=== PATIENT | female | born 1970 | race Caucasian/White ===

== ENCOUNTER 2022-08-18 03:20 | Emergency (ER) | payer BC, SELFPAY ==
[2022-08-18 03:23] VITALS: BMI 22.8
[2022-08-18 03:28] VITALS: BP 102/33; PULSE 71; RESP 18; TEMP 36.1; O2SAT 99
--- NOTE | 2022-08-18 03:31 | CTR_ITS ---
PROCEDURE INFORMATION: Exam: CT Abdomen And Pelvis With Contrast Exam date and time: 08/18/2022 3:44 AM Age: 51 years old Clinical indication: Abdominal pain; Generalized; Prior surgery; Surgery date: 6+ months; Surgery type: Hysterectomy; Additional info: Abd pain TECHNIQUE: Imaging protocol: Computed tomography of the abdomen and pelvis with contrast. Radiation optimization: All CT scans at this facility use at least one of these dose optimization techniques: automated exposure control; mA and/or kV adjustment per patient size (includes targeted exams where dose is matched to clinical indication); or iterative reconstruction. Contrast material: OMNI 350; Contrast volume: 100 ml; Contrast route: INTRAVENOUS (IV); COMPARISON: No relevant prior studies available. RADIATION DOSE METRICS: Total DLP (mGy-cm): 389.98 FINDINGS: Lungs: The visualized portions of the lung bases are normal. Liver: Normal contrast enhancement of the liver. Segment VIII 7 x 7 mm low-attenuation lesion is seen, suggestive of a cyst. Gallbladder and bile ducts: No calcified stones. No ductal dilation. Pancreas: Normal contour and enhancement. No ductal dilation. Spleen: Normal enhancement. No splenomegaly. Adrenal glands: Normal contour. No mass. Kidneys and ureters: Left kidney lower pole simple 5 x 5 cm cyst is seen. Normal enhancement of the kidneys. Mild right hydronephrosis and ureterectasis. Suspected right distal ureteral 1 x 1 mm calculus (series 3, image 66 and series 5, image 20) at the level of the hip joint. This no left hydronephrosis, ureterectasis or ureteral calculi. Stomach and bowel: The non-contrast opacified stomach is not well distended with relative gastric fold prominence. Assessment is limited. Suspected tiny hiatal hernia. The noncontrast opacified small bowel loops appear unremarkable. The noncontrast opacified colonic loops appear unremarkable. The lack of orally administered contrast material limits assessment. Appendix: No appendix is specifically identified. Recommend correlation with procedural history. There is no evidence of fluid collections or inflammatory stranding in the right lower quadrant. Intraperitoneal space: No abdominal ascites. No free air. Some benign phleboliths seen in the pelvis. Vasculature: No abdominal aortic aneurysm. Inferior vena cava and portal vein appear unremarkable. Lymph nodes: No enlarged lymph nodes. Urinary bladder: The bladder is not well distended with relative wall prominence. Assessment is limited. Reproductive: Status post hysterectomy. Bones/joints: No acute osseous abnormality seen. Soft tissues: Unremarkable. CT/CT abdomen pelvis w con* [id number] IMPRESSION: Mild right hydronephrosis and ureterectasis. Suspected right distal ureteral 1 x 1 mm calculus (series 3, image 66 and series 5, image 20) at the level of the hip joint. COMMENTS: Consistent with the [place] [employer]'s Incidental Findings Committee white paper (J Am Erika Radiol 2018): Any incidental renal lesion less than 1 cm or classified as too small to characterize, or any incidental cystic renal lesion characterized as simple-appearing, is likely benign. No follow-up imaging is recommended for these lesions per consensus recommendations based on imaging criteria.
--- NOTE | 2022-08-18 03:34 | ED_ITS ---
HPI - Abdominal Pain General: Chief Complaint: Abdominal Pain Stated Complaint: Rt Side Pain Time Seen by Provider: 08/18/22 03:28 Source: patient Mode of arrival: ambulatory Limitations: no limitations History of Present Illness: 51-year-old female who states been having abdominal pain over the last 3 days states been intermittent in nature but tonight its been constant much worse. She states her pain is currently 9 out of 10 and she has had vomiting tonight. She has had kidney stones the past but states this does not really feel like her previous kidney stones. Denies any chest pain denies any fever denies any dysuria Associated Symptoms: Reports nausea and vomiting; Denies chills, dysuria and fever(s) Review of Systems Const: Denies: fever(s), chills, body aches or change in appetite Eyes: Denies: blurry vision or eye discomfort ENMT: Denies: throat pain or dental pain Card: Denies: chest pain Resp: Denies: dyspnea GI: Reports: abdominal pain, nausea and vomiting : Denies: dysuria Musc: Denies: neck pain or back pain Skin/Breast: Denies: rash Neuro: Denies: headache(s) Psych: Denies: depression Victor Manuel/Lymph: Denies: easy bruising All/Imm: Denies: urticaria PFSH ED 2 PFSH: Medical History (Updated 08/18/22 @ 05:17 by Wilbert Esteves MD) Kidney stone Surgical History (Updated 08/18/22 @ 03:34 by Wilbert Esteves MD) H/O: hysterectomy Social History (Updated 08/18/22 @ 03:34 by Wilbert Esteves MD) Substance/Drug Use: never Physical Exam Const: COMMON NORMALS: no acute distress, patient oriented x3 and healthy appearing HENMT: COMMON NORMALS: normocephalic and atraumatic HEAD & SCALP: normocephalic and atraumatic Eye: COMMON NORMALS: Equal, round and reactive pupils present and EOMs intact bilaterally PUPIL: Yes Equal, round and reactive pupils present Neck/C-Spine: COMMON NORMALS: full ROM and supple Chest: COMMONS NORMALS: normal inspection of the chest and normal palpation of entire chest wall Resp: COMMON NORMALS: normal respiratory effort, No retractions, No use of accessory muscles and clear to auscultation bilaterally AUSCULTATION: clear to auscultation bilaterally Cardio: COMMON NORMALS: regular rate, regular rhythm and No murmurs present (Cardio) RATE: regular rate RHYTHM: regular rhythm GI: COMMON NORMALS: Normal to inspection, nondistended, normoactive bowel sounds present, Soft to palpation and no masses PALPATION: Yes Soft to palpation OTHER: right sided abd tenderness Extremity: COMMON NORMALS: normal to inspection and full ROM Neuro: COMMON NORMALS: patient oriented x3, moves all extremities and no focal motor deficits Psych: COMMON NORMALS: mental status grossly normal, Normal thought process present and cooperative THOUGHT PROCESS: Normal thought process present Skin: COMMON NORMALS: no rashes or lesions noted and no wounds GENERAL SKIN EXAM: no rashes or lesions noted Course Vital Signs: Vital signs: Vital Signs Temperature 96.9 F L 08/18/22 03:28 Pulse Rate 80 08/18/22 04:57 Respiratory Rate 14 08/18/22 04:57 Blood Pressure 111/74 08/18/22 04:57 Pulse Oximetry 99 08/18/22 04:57 Oxygen Delivery Me thod 08/18/22 04:57 Oxygen Flow Rate 2 08/18/22 03:57 MDM - Abdominal Pain Medical Decision Making Patient presents here with right abdominal and flank pain considered with a kidney stone kidney stone seen on CT scan her pain is much improved she is stable for discharge she is to follow-up with Dr. Mccann and return if worsening. Lab Data : 08/18/22 03:40 08/18/22 03:40 Labs/Radiology: Radiology Impressions Abdomen/Pelvis CT 08/18/22 03:31 IMPRESSION: Mild right hydronephrosis and ureterectasis. Suspected right distal ureteral 1 x 1 mm calculus (series 3, image 66 and series 5, image 20) at the level of the hip joint. COMMENTS: Consistent with the [employer] [place] [employer]'s Incidental Findings Committee white paper (J Am Erika Radiol 2018): Any incidental renal lesion less than 1 cm or classified as too small to characterize, or any incidental cystic renal lesion characterized as simple-appearing, is likely benign. No follow-up imaging is recommended for these lesions per consensus recommendations based on imaging criteria. Laboratory Results WBC 7.1 10^3/uL (4.0-10.0) 08/18/22 03:40 RBC 4.81 10^6/uL (4.1-5.3) 08/18/22 03:40 Hgb 14.9 g/dL (11.5-15.3) 08/18/22 03:40 Hct 44.0 % (37.0-47.0) 08/18/22 03:40 MCV 91.5 fl (81-99) 08/18/22 03:40 MCH 31.0 pg (28.0-34.0) 08/18/22 03:40 MCHC 33.9 g/dL (30.0-36.0) 08/18/22 03:40 RDW 12.0 % (12.1-15.1) L 08/18/22 03:40 Plt Count 198 10^3/cmm (130-400) 08/18/22 03:40 MPV 10.4 fL (7.4-10.4) 08/18/22 03:40 Neut % (Auto) 54.0 % 08/18/22 03:40 Lymph % (Auto) 33.7 % 08/18/22 03:40 [place] % (Auto) 8.7 % 08/18/22 03:40 Eos % (Auto) 3.1 % 08/18/22 03:40 Baso % (Auto) 0.4 % 08/18/22 03:40 Neut # (Auto) 3.82 10^3/uL (1.8-7.7) 08/18/22 03:40 Lymph # (Auto) 2.4 10^3/uL (0.8-4.8) 08/18/22 03:40 [place] # (Auto) 0.6 10^3/uL (0.2-0.9) 08/18/22 03:40 Eos # (Auto) 0.2 10^3/uL (0.0-0.8) 08/18/22 03:40 Baso # (Auto) 0.0 10^3/uL (0.0-0.1) 08/18/22 03:40 Nucleated RBC % (auto) 0 % 08/18/22 03:40 Nucleated RBCs # 0.0 /100WBC 08/18/22 03:40 Sodium 139 mmol/L (136-145) 08/18/22 03:40 Potassium 4.2 mmol/L (3.5-5.1) 08/18/22 03:40 Chloride 103 mmol/L (98-107) 08/18/22 03:40 Carbon Dioxide 24 mmol/L (22-29) 08/18/22 03:40 Anion Gap 16.2 (5-19) 08/18/22 03:40 BUN 9 mg/dL (6-20) 08/18/22 03:40 Creatinine 0.9 mg/dL (0.5-0.9) 08/18/22 03:40 GFR Calculation 66.5 mL/min (90-130) L 08/18/22 03:40 Glucose 104 mg/dL (65-115) 08/18/22 03:40 Calculated Osmolality 287 mOsm/kg (285-295) 08/18/22 03:40 Lactate 1.4 mmol/L (0.5-2.2) 08/18/22 03:38 Calcium 9.8 mg/dL (8.5-10.5) 08/18/22 03:40 Total Bilirubin 0.3 mg/dL (0.15-1.2) 08/18/22 03:40 AST 12 U/L (0-32) 08/18/22 03:40 ALT 7 U/L (0-33) 08/18/22 03:40 Alkaline Phosphatase 75 U/L (35-105) 08/18/22 03:40 Total Protein 6.6 g/dL (6.6-8.7) 08/18/22 03:40 Albumin 3.9 g/dL (3.5-5.2) 08/18/22 03:40 Globulin 2.7 g/dL (1.3-4.6) 08/18/22 03:40 Lipase 11 U/L (13-60) L 08/18/22 03:40 Urine Color Yellow (Yellow) 08/18/22 04:55 Urine Appearance Clear (CLEAR) 08/18/22 04:55 Urine pH 6.5 (5-7) 08/18/22 04:55 Ur Specific [place] 1.015 (1.005-1.030) 08/18/22 04:55 Urine Protein 1+ (Negative) H 08/18/22 04:55 Urine Glucose (UA) Norm (Normal) 08/18/22 04:55 Urine Ketones 1+ (Negative) H 08/18/22 04:55 Urine Blood 3+ (Negative) H 08/18/22 04:55 Urine Nitrate Negative (Negative) 08/18/22 04:55 Urine Bilirubin 1+ (Negative) H 08/18/22 04:55 Urine Urobilinogen 1 mg/dL (Negative) H 08/18/22 04:55 Ur Leukocyte Esterase Negative (Negative) 08/18/22 04:55 Urine RBC Too numerous to cnt /hpf (0-2) H 08/18/22 04:55 Urine WBC 0-4 /hpf (0-5) H 08/18/22 04:55 Ur Squamous Epith Cells 0-4 /hpf (0-5) H 08/18/22 04:55 Amorphous Sediment Not Reportable 08/18/22 04:55 Urine Bacteria Trace /hpf (NONE) 08/18/22 04:55 Hyaline Casts 0-4 /lpf H 08/18/22 04:55 Urine Mucus 2+ /hpf 08/18/22 04:55 Discharge Plan Discharge Patient Disposition: Home Clinical Impression: Kidney stone Prescriptions: New hydrocodone-acetaminophen 5-325 mg tablet 1 tab PO Q6H PRN (Reason: pain) Qty: 14 0RF ondansetron 4 mg tablet,disintegrating 4 mg PO Q6H PRN (Reason: nausea and vomiting) Qty: 14 0RF Discharge Orders: Discharge ED (Routine); Ordered 08/18/22 Ordered By: Wilbert Esteves Referrals: [facility], [Occupational Therapist] - Valdemar Mccann MD [Physician] - 1-3 days Discharge Diet: Advance as tolerated Discharge Activity: Resume usual activity Patient Instructions: Kidney Stones (ED), Opioid Safety Coding Level of Care Code ED Beef Killer for Chg Fwd Exam Comprehensive
[2022-08-18] MEDS: ondansetron 2 mg/ML SDV 2 mL 4 MG IVP (03:42)
[2022-08-18] MEDS: HYDROmorphone 1 mg/mL INJ 1 mL 0.5 MG IVP (03:42)
[2022-08-18] MEDS: sodium chloride 0.9% 1,000 ML 999 ML IV (03:42)
[2022-08-18 03:47] LABS: Basophils % 0.4 %; Eosinophils # 0.2 10^3/uL (0.0-0.8); Eosinophils % 3.1 %; Hemoglobin 14.9 g/dL (11.5-15.3); Lymphocytes # 2.4 10^3/uL (0.8-4.8); Lymphocytes % 33.7 %; Mean Corpuscular HGB Conc 33.9 g/dL (30.0-36.0); Mean Corpuscular Volume 91.5 fl (81-99); Mean Platelet Volume 10.4 fL (7.4-10.4); Monocytes # 0.6 10^3/uL (0.2-0.9); Monocytes % 8.7 %; Neutrophils # 3.82 10^3/uL (1.8-7.7); Nucleated Red Blood Cells % 0 %; Platelet Count 198 10^3/cmm (130-400); Red Blood Count 4.81 10^6/uL (4.1-5.3); White Blood Count 7.1 10^3/uL (4.0-10.0)
[2022-08-18 03:57] VITALS: BP 123/73; O2SAT 97
[2022-08-18 04:02] LABS: Chloride 103 mmol/L (98-107); Potassium 4.2 mmol/L (3.5-5.1); Sodium 139 mmol/L (136-145)
[2022-08-18 04:08] VITALS: RESP 22
[2022-08-18] MEDS: HYDROmorphone 1 mg/mL INJ 1 mL IVP (04:08)
[2022-08-18 04:18] LABS: Lactate (Lactic Acid level) 1.4 mmol/L (0.5-2.2)
[2022-08-18 04:27] LABS: Alanine Aminotransferase 7 U/L (0-33); Albumin Level 3.9 g/dL (3.5-5.2); Alkaline Phosphatase 75 U/L (35-105); Anion Gap 16.2 (5-19); Aspartate Amino Transferase 12 U/L (0-32); Blood Urea Nitrogen 9 mg/dL (6-20); Calcium 9.8 mg/dL (8.5-10.5); Carbon Dioxide 24 mmol/L (22-29); Globulin 2.7 g/dL (1.3-4.6); Glomerular Filtration Rate 66.5 mL/min (90-130); Glucose 104 mg/dL (65-115); Lipase 11 U/L (13-60); Osmolality Calculated 287 mOsm/kg (285-295); Total Bilirubin 0.3 mg/dL (0.15-1.2); Total Protein 6.6 g/dL (6.6-8.7)
[2022-08-18 04:57] VITALS: BP 111/74; PULSE 80; RESP 14; O2SAT 99
[2022-08-18 05:10] LABS: Bilirubin Urine 1+ (Negative); Blood Urine 3+ (Negative); Glucose Urine UA Norm (Normal); Ketones Urine 1+ (Negative); Leukocyte Esterase Urine Negative (Negative); Nitrate Urine Negative (Negative); Protein Urine 1+ (Negative); Specific Gravity, Urine 1.015 (1.005-1.030); Urine Appearance Clear (CLEAR); Urine Color Yellow (Yellow); Urobilinogen Urine 1 mg/dL (Negative); pH Urine 6.5 (5-7)
[2022-08-18 05:11] LABS: Add Urine Microscopic? YES
[2022-08-18 05:13] LABS: Add Urine Culture? No; Bacteria Urine TRACE /hpf; Hyaline Casts Urine 0-4 /lpf; Mucus Urine 2+ /hpf; RBC Urine TOO NUMEROUS TO CNT /hpf (0-2); Squamous Epithelial Cell Urine 0-4 /hpf (0-5); WBC Urine 0-4 /hpf (0-5)
[2022-08-18] MEDS: ketorolac 30 mg/mL INJ 15 MG IVP (05:23)
[2022-08-18 05:24] VITALS: BP 123/86; PULSE 61; RESP 17; O2SAT 99
--- NOTE | 2022-08-18 10:09 | DCPLANNER ---
Addendum entered by Rhianna Newsome 08/22/22 08:33: manager culinary received the following message from the urology clinic regarding follow up appointment: Tried to schedule appt. for patient and stated she passed stone and does not want an appt. Original Note: manager culinary had message to schedule a follow up appointment for patient with urology. manager culinary sent patients information to the front office staff at urology. Patients information will be printed and reviewed. Clinic will call patient with appointment information.
== END 2022-08-18 05:34 | disposition home or self-care (01) ==
PROVIDERS: Emergency Provider Emergency Medicine
DX: N20.0 Calculus of kidney (principal); Z87.442 Personal history of urinary calculi
CPT/HCPCS: 74177; 80053; 81001; 83605; 83690; 85025; 96361; 96374; 96375; 96376; 99285; J1170; J1885; J2405; J7030; Q9967

== ENCOUNTER 2025-07-14 06:22 | Emergency (ER) | payer BC, SELFPAY ==
[2025-07-14 06:23] VITALS: BP 113/86; PULSE 68; O2SAT 99; BMI 23.3
--- OUTSIDE RECORDS SUMMARY | 2025-07-14 06:27 | XMS_ITS | Clinical Summary ---
Author Organization [facility] lug[facility]ain Address [address] [place] [address] Phone Care Team Providers Care Leather Softener Name Role Phone Faustino Bose Primary Care Provider [phone] Allergies Active Allergy Reactions Criticality Noted Date Comments Erythromycin Rash Low 10/14/2021 Hydrocodone Palpitations Low 10/14/2021 Nut Flavor Rash Low 08/22/2024 almonds Phenytoin Sodium Extended Rash Low 10/14/2021 Medications naproxen sodium (ALEVE) 220 mg Tablet Take 220 mg by mouth. 07/01/20 25 Discontinued Active Problems Problem Noted Date Diagnosed Date Chronic constipation 10/14/2021 History of seizures 10/14/2021 Overview (10/14/2021): Mid 20's, no medication currently Polyp of colon 03/07/2020 Overview (01/28/2025): Per colonoscopy 02/28/2020 Family history of colonic polyps 12/25/2019 Multiple benign melanocytic nevi 12/25/2019 Perforation of tympanic membrane 12/25/2019 Irritable bowel syndrome with constipation 12/25 Overview (01/28/2025): Dx by nutrition consultant. Pruritic disorder 12/04/2019 Overview (01/28/2025): at least 8 year, mostly lower legs now advancing to other places on the body. Bilateral plantar fasciitis 12/04/2019 Encounters Date Type Department Care Team Description 07/01/2025 3:50 PM CDT Office Visit [facility] [address] [place] [address] Marya Lopez, RADIO SURVEY WORKER Irritable bowel syndrome with constipation (Primary Dx); Encounter for screening mammogram for malignant neoplasm of breast 06/03/2025 External Device Data STL ABSTRACTION Provider, Abstract 05/14/2025 External Device Data STL ABSTRACTION Provider, Abstract 05/13/2025 External Device Data STL ABSTRACTION Provider, Abstract 04/15/2025 External Device Data STL ABSTRACTION Provider, Abstract from Last 3 Months Family History Medical History Relation Name Comments Hypertension Brother 1 Diabetes Father Diabetes Maternal Grandmother Heart Disease Maternal Grandmother Hypertension Mother Diabetes Paternal Grandmother Colon Cancer Neg Hx Relation Name Status Comments Brother 1 Alive Brother 2 Alive Brother 3 Alive Brother 4 Alive Brother 5 Alive Daughter Alive Father Alive Maternal Grandmother Mother Alive Paternal Grandmother Sister 1 Alive Sister 2 Alive Son Alive Social History Tobacco Use Types Packs/Day Years Used Date Smoking Tobacco: Every Day Cigarettes 0.5 32 Passive Smoke Exposure: Current Smokeless Tobacco: Never Tobacco Cessation:Ready to Q uit: Not Asked; Counseling Given: Not Answered Alcohol Use Standard Drinks/Week Comments Never 0 (1 standard drink = 0.6 oz pur e alcohol) Feeling Safe Answer Date Recorded Are you in a relationship wi th someone who hurts you emotionally and/or physically? No 11/05/2024 Comments No Sex and Gender Information Value Date Recorded Sex Assigned at Not on file Legal Sex Female 10:46 AM CDT Gender Identity Not on file Sexual Orientation Not on file Last Filed Vital Signs Vital Sign Reading Time Taken Comments Blood Pressure 100/62 07/01/2025 3:55 PM CDT Pulse 65 07/01/2025 3:55 PM CDT Temperature 36.5 C (97.7 F) 07/01/2025 3:55 PM CDT Respiratory Rate 18 07/01/2025 3:55 PM CDT Oxygen Saturation 99% 07/01/2025 3:55 PM CDT Inhaled Oxygen Concentration - - Weight 61.6 kg (135 lb 12.8 oz) 07/01/2025 3:55 PM CDT Height 160 cm (5' 3 ) 07/01/2025 3:55 PM CDT Body Mass Index 24.06 07/01/2025 3:55 PM CDT Plan of Treatment Upcoming Encounters Date Type Department Care Team (Late st Contact Info) Description 07/30/2025 12:45 PM CDT Appointment [facility] [place] [address] [place] [id number] Marya Lopez, RADIO SURVEY WORKER [address] [place] [address] Health Maintenance Due Date Last Done Comments DTAP/TDAP/TD VACCINES (1 - Tdap) 1991 HEPATITIS B VACCINES (1 of 3 - 19+ 3-dose series) 1991 BREAST CANCER SCREENING 2012 FIT-DNA Q 3 years 2017 FIT/FOBT Q 1 year 2017 Flex Sig/CT Colonography Q 5 years 2017 ZOSTER VACCINE (1 of 2) 2022 Preventative Visit- Commercial 10/30/2024 INFLUENZA VACCINE (#1) 2025 COLORECTAL SCREENING 11/05/2034 11/05/2024, 11/05/2024, 11/04/2024, Additional history exists Colorectal Cancer Screening 11/05/2034 Procedures Procedure Name Priority Date/Time Associated Diagnosis Comments COLONOSCOPY REPORT 11/05/2024 10 :39 AM STOREROOM CLERK from Last 3 Months or Most Recently Relevant to Health Maintenance Results * COLONOSCOPY REPORT (11/05/2024 10:39 AM STOREROOM CLERK) Narrative Procedure Note Jeremy Jacques MD - 11/05/2024 10:[address] [facility] GI Patient Name: Nahed Carlos Procedure Date: 11/05/2024 Date of : 1970 Admit Type: Outpatient Age: 54 Attending MD: Jeremy Jacques MD, Procedure: Colonoscopy Indications: Screening for colorectal malignant neoplasm Providers: Jeremy Jacques MD Referring MD: Medicines: Monitored Anesthesia Care Complications: No immediate complications. Procedure: Pre-Anesthesia Assessment: - Prior to the procedure, a History and Physical was performed, and patient medications and allergies were reviewed. The patient's tolerance of previous anesthesia was also reviewed. The risks and benefits of the procedure and the sedation options and risks were discussed with the patient. All questions were answered, and informed consent was obtained. Prior Anticoagulants: The patient has taken no anticoagulant or antiplatelet agents. ASA Grade Assessment: II - A patient with mild systemic disease. After reviewing the risks and benefits, the patient was deemed in satisfactory condition to undergo the procedure. After I obtained informed consent, the scope was passed under direct vision. Throughout the procedure, the patient's blood pressure, pulse, and oxygen saturations were monitored continuously. The Colonoscope was introduced through the anus and advanced to the cecum, identified by appendiceal orifice and ileocecal valve. The colonoscopy was performed without difficulty. The patient tolerated the procedure well. The quality of the bowel preparation was adequate. Estimated Blood Loss: Estimated blood loss was minimal. Findings: Internal hemorrhoids were found during retroflexion. The hemorrhoids were small. The exam was otherwise without abnormality. Impression: - Internal hemorrhoids. - The examination was otherwise normal. - No specimens collected. Recommendation: - Patient has a contact number available for emergencies. The signs and symptoms of potential delayed complications were discussed with the patient. Return to normal activities tomorrow. Written discharge instructions were provided to the patient. - Resume previous diet. - Continue present medications. - Repeat colonoscopy in 10 years for screening purposes. Jeremy Jacques MD 11/05/2024 10:39:10 AM Number of Addenda: 0 Note Initiated On: 11/05/2024 10:06 AM Scope Withdrawal Time 0 hours 12 minutes 47 seconds Scope In: 10:16:31 AM Scope Out: 10:36:50 AM [address] [place], [place] Jeremy Jacques MD GI PROCEDURE ORDERA BLES Final Result from Last 3 Months or Most Recently Relevant to Health Maintenance Insurance [facility] ACCESS Advance Directives For more information, please contact: [phone] * Full Code (Latest Code Status on File) Date Activated Date Inactivated Comments 11/04/2024 12:59 PM 11/04/2024 4:17 PM Care Teams Leather Softener Relationship Specialty Start Date End Date Faustino Bose DO [address] [place] [address] PCP - General Family Practice 10/14/21
--- NOTE | 2025-07-14 06:34 | XRR_ITS ---
PROCEDURE INFORMATION: Exam: XR Abdomen Exam date and time: 07/14/2025 07:05 AM Age: 54 years old Clinical indication: Constipation; Additional info: Abd pain constipation TECHNIQUE: Imaging protocol: Radiologic exam of the abdomen. Views: 2 Views. Upright and supine views. COMPARISON: CT abdomen pelvis w con* [id number] 08/18/2022 03:44 AM FINDINGS: Lungs: Single view of the chest demonstrates no airspace disease. Pleural spaces: No pleural effusion. Heart/Mediastinum: Cardiac size and configuration are within normal limits. Gastrointestinal tract: The bowel-gas pattern is nonobstructive with a moderate amount of stool throughout the colon. No free air or suspicious air-fluid levels. Intraperitoneal space: See Gastrointestinal tract finding. Organs: No organomegaly or abnormal abdominal calcifications. Bones/joints: Unremarkable for age. XR/XR acute abdomen series [id number] IMPRESSION: 1. No airspace disease. 2. Nonobstructive bowel-gas pattern with moderate stool throughout the colon.
--- NOTE | 2025-07-14 06:47 | ED_ITS ---
HPI - General Adult 2 General: Chief complaint: Abdominal Pain Stated complaint: constipation for about 2weeks Time Seen by Provider: 07/14/25 06:33 History of Present Illness: 54-year-old female presents to the [facility] ency room with complaints of constipation. Patient states this been a longstanding problems been going on for several months. She has had colonoscopy x 2 earlier this year with no significant pathologic findings. He did have a hard time getting her prep completed on the initial 1 to get adequate colonoscopy. She denies any bright red blood per rectum. States she has not had a bowel movement for nearly 2 weeks. She is on MiraLAX regularly and she has tried [id number] laxatives. Associated symptoms: Reports nausea and vomiting; Deny chest pain, dyspnea or rash Related Data Previous Rx's ?Medication ?Instructions ?Recorded hydrocodone 5 mg-acetaminophen 325 1 tab PO Q6H PRN pa in #14 tabs 08/18/22 mg tablet ondansetron 4 mg disintegrating 4 mg PO Q6H PRN nausea and 08/18/22 tablet vomiting #14 tabs lactulose 10 gram/15 mL oral 30 ml PO Q2H PRN constipa tion 72 07/14/25 solution (Generlac) hours #1,080 mL Allergies Allergy/AdvReac Type Severity Reaction Status Date / Time erythromycin base (From Allergy Unknown Verified 08/18/22 04:09 Erythrocin) Review of Systems 2 Const: Denies: fever(s) or chills Card: Denies: chest pain Resp: Denies: dyspnea GI: Reports: abdominal pain, nausea, vomiting, constipation and bloating; Denies: hematemesis, coffee ground emesis, hematochezia or melena : Denies: dysuria, urinary frequency or urinary urgency Musc: Denies: neck pain or back pain Skin/Breast: Denies: rash PFSH ED 2 PFSH: Medical History Kidney stone Surgical History H/O: hysterectomy Social History Substance/Drug Use: never Physical Exam 2 Const: COMMON NORMALS: no acute distress GENERAL APPEARANCE: cooperative and comfortable ORIENTATION/CONSCIOUSNESS: Yes awake, Yes oriented to person, Yes oriented to place and Yes oriented to time HENMT: COMMON NORMALS: normocephalic, atraumatic and hearing grossly normal bilaterally HEAD & SCALP: normocephalic and atraumatic Resp: COMMON NORMALS: normal respiratory effort, No retractions, No use of accessory muscles and clear to auscultation bilaterally AUSCULTATION: clear to auscultation bilaterally Cardio: COMMON NORMALS: regular rate, regular rhythm and No murmurs present (Cardio) RATE: regular rate RHYTHM: regular rhythm GI: COMMON NORMALS: Soft to palpation and No hepatosplenomegaly present A USCULTATION: Yes normoactive bowel sounds PALPATION: Yes Soft to palpation, No Tenderness to palpation present (GI), No Guarding due to palpation present (GI) and Yes No hepatosplenomegaly present Extremity: COMMON NORMALS: normal to inspection, capillary refill normal, no clubbing, cyanosis or edema, no calf tenderness and no pedal edema Neuro: SENSORIUM/ORIENTATION: Yes oriented to person, Yes oriented to place and Yes oriented to time Skin: COMMON NORMALS: no rashes or lesions noted GENERAL SKIN EXAM: no rashes or lesions noted Course 2 Vital Signs: Vital signs: Vital Signs Pulse Rate 68 07/14/25 06:23 Blood Pressure 105/72 07/14/25 07:03 Pulse Oximetry 99 07/14/25 07:03 Oxygen Delivery Me thod Room Air 07/14/25 07:03 MDM - General Adult Medical Decision Making Moderate stool but no signs of bowel obstruction on either exam or on the acute abdominal series. Patient is already taking MiraLAX encouraged her to spread it out throughout the day can increase the dose for effectiveness. Patient given enema in the emergency room and will discharge home with lactulose. She has previously had colonoscopy within the last year. Her laboratory work is unremarkable and her exam shows no sign of acute abdomen. Encouraged her to follow-up with primary care doctor and gastroenterology. Medical Records I reviewed the patient's medical records. Lab Data I reviewed the patient's lab results. 07/14/25 07:34 07/14/25 07:34 Radiology Impressions Chest/Abdomen X-ray 07/14/25 06:34 IMPRESSION: 1. No airspace disease. 2. Nonobstructive bowel-gas pattern with moderate stool throughout the colon. Laboratory Results WBC 5.63 10^3/uL (3.29-11.43) 07/14/25 07:34 RBC 4.75 10^6/uL (3.85-5.65) 07/14/25 07:34 Hgb 14.20 g/dL (11.27-16.99) 07/14/25 07:34 Hct 43.4 % (36-47) 07/14/25 07:34 MCV 91.4 fl (85-98) 07/14/25 07:34 MCH 29.9 pg (27-33) 07/14/25 07:34 MCHC 32.7 g/dL (30-55) 07/14/25 07:34 RDW 12.6 % (12.1-15.1) 07/14/25 07:34 Plt Count 148 10^3/cmm (157-399) L 07/14/25 07:34 MPV 10.5 fL (7.4-10.4) H 07/14/25 07:34 Neut % (Auto) 49.6 % 07/14/25 07:34 Lymph % (Auto) 36.4 % 07/14/25 07:34 [place] % (Auto) 8.9 % 07/14/25 07:34 Eos % (Auto) 4.4 % 07/14/25 07:34 Baso % (Auto) 0.7 % 07/14/25 07:34 Neut # (Auto) 2.79 10^3/uL (1.8-7.7) 07/14/25 07:34 Lymph # (Auto) 2.1 10^3/uL (0.8-4.8) 07/14/25 07:34 [place] # (Auto) 0.5 10^3/uL (0.2-0.9) 07/14/25 07:34 Eos # (Auto) 0.3 10^3/uL (0.0-0.8) 07/14/25 07:34 Baso # (Auto) 0.0 10^3/uL (0.0-0.1) 07/14/25 07:34 Nucleated RBC % (auto) 0 % 07/14/25 07:34 Nucleated RBCs # 0.0 /100WBC 07/14/25 07:34 Sodium 144 mmol/L (136-145) 07/14/25 07:34 Potassium 4.0 mmol/L (3.5-5.1) 07/14/25 07:34 Chloride 108 mmol/L (98-107) H 07/14/25 07:34 Carbon Dioxide 25 mmol/L (22-29) 07/14/25 07:34 Anion Gap 15.0 (5-19) 07/14/25 07:34 BUN 11 mg/dL (6-20) 07/14/25 07:34 Creatinine 0.8 mg/dL (0.5-0.9) 07/14/25 07:34 GFR Calculation 75.3 mL/min (90-130) L 07/14/25 07:34 Glucose 80 mg/dL (65-115) 07/14/25 07:34 Calculated Osmolality 296 mOsm/kg (285-295) H 07/14/25 07:34 Calcium 9.9 mg/dL (8.5-10.5) 07/14/25 07:34 Total Bilirubin 0.4 mg/dL (0.15-1.2) 07/14/25 07:34 AST 14 U/L (0-32) 07/14/25 07:34 ALT 8 U/L (0-33) 07/14/25 07:34 Alkaline Phosphatase 77 U/L (35-105) 07/14/25 07:34 Total Protein 7.1 g/dL (6.6-8.7) 07/14/25 07:34 Albumin 4.3 g/dL (3.5-5.2) 07/14/25 07:34 Globulin 2.8 g/dL (1.3-4.6) 07/14/25 07:34 Urine Color Yellow (Yellow) 07/14/25 07:00 Urine Appearance Clear (CLEAR) 07/14/25 07:00 Urine pH 5.5 (5-7) 07/14/25 07:00 Ur Specific [place] 1.010 (1.005-1.030) 07/14/25 07:00 Urine Protein Negative (Negative) 07/14/25 07:00 Urine Glucose (UA) Negative (Normal) 07/14/25 07:00 Urine Ketones Negative (Negative) 07/14/25 07:00 Urine Blood Trace (Negative) A 07/14/25 07:00 Urine Nitrate Negative (Negative) 07/14/25 07:00 Urine Bilirubin Negative (Negative) 07/14/25 07:00 Urine Urobilinogen 0.2 mg/dL (Negative) 07/14/25 07:00 Ur Leukocyte Esterase Trace (Negative) A 07/14/25 07:00 Urine RBC 0-2 /hpf (0-2) 07/14/25 07:00 Urine WBC 0-5 /hpf (0-5) 07/14/25 07:00 Ur Squamous Epith Cells 0-5 /hpf (0-5) 07/14/25 07:00 Amorphous Sediment Not Reportable 07/14/25 07:00 Urine Bacteria None seen /hpf (NONE) 07/14/25 07:00 Hyaline Casts 1.21 /lpf 07/14/25 07:00 All radiology interpretation(s) finalized by discharge Discharge Plan Discharge Patient Disposition: Home Clinical Impression: Constipation Condition: Stable Prescriptions: New lactulose [Generlac] 10 gram/15 mL solution 30 ml PO Q2H PRN (Reason: constipation) 3 Days Qty: 1080 0RF Rx Instructions: until desired laxative effect No Action hydrocodone-acetaminophen 5-325 mg tablet 1 tab PO Q6H PRN (Reason: pain) Qty: 14 0RF ondansetron 4 mg tablet,disintegrating 4 mg PO Q6H PRN (Reason: nausea and vomiting) Qty: 14 0RF Discharge Orders: Discharge ED (Routine); Ordered 07/14/25 Ordered By: Ervin Simmons Discharge Diet: Clear Liquid Discharge Activity: Increase activity as tolerated Patient Instructions: Constipation (ED), Opioid Safety, Pain Management, Patient Portal & Jeanette Instructions Activity Restrictions/Additional Instructions: Thank you for choosing [facility] for your healthcare needs today. It is very important that you follow up as instructed or that you return to the Emergency Department should you have concerns or if your condition changes or worsens in any way. Emergency department visits are focused on emergent conditions, in some cases you may require further evaluation on an outpatient basis. You were seen in the emergency room with complaints of constipation. There is a fair amount of retained stool in the colon. Your laboratory tests including urine were negative for anything acute. There is no sign of bowel obstruction on the x-ray of your abdomen. You were given an enema in the emergency room and discharged home with lactulose to use 1 dose every 2 hours as needed until desired result achieved. Recommend you follow-up with your primary care doctor or lost and found clerk regarding your chronic constipation issues. You can increase your lactulose dose and take half of the total dose in the morning and half in the evening decrease constipation issues going forward. (Please note that included in your discharge packet is information concerning opioid safety and pain management. This information is given to all patients were discharged from the ER regardless of their discharge diagnosis or the medicines they usually take or are prescribed.) Print Language: Greek Coding Level of Care Code ED Worship Pastor for Michael Barakat
[2025-07-14 07:03] VITALS: BP 105/72; O2SAT 99
[2025-07-14 07:39] LABS: Hematocrit 43.4 % (36-47); Hemoglobin 14.20 g/dL (11.27-16.99); Mean Corpuscular HGB Conc 32.7 g/dL (30-55); Mean Corpuscular Hemoglobin 29.9 pg (27-33); Mean Corpuscular Volume 91.4 fl (85-98); Nucleated Red Blood Cells % 0 %; Platelet Count 148 10^3/cmm (157-399); Red Blood Count 4.75 10^6/uL (3.85-5.65); White Blood Count 5.63 10^3/uL (3.29-11.43)
[2025-07-14 07:45] LABS: Glucose Urine UA Negative (Normal); Nitrate Urine Negative (Negative); Specific Gravity, Urine 1.010 (1.005-1.030)
[2025-07-14 07:48] LABS: Add Urine Microscopic? YES
[2025-07-14 07:56] LABS: Alanine Aminotransferase 8 U/L (0-33); Albumin Level 4.3 g/dL (3.5-5.2); Alkaline Phosphatase 77 U/L (35-105); Anion Gap 15.0 (5-19); Aspartate Amino Transferase 14 U/L (0-32); Blood Urea Nitrogen 11 mg/dL (6-20); Calcium 9.9 mg/dL (8.5-10.5); Carbon Dioxide 25 mmol/L (22-29); Chloride 108 mmol/L (98-107); Creatinine Clr Calc Pharmacy 71.9296; Globulin 2.8 g/dL (1.3-4.6); Glucose 80 mg/dL (65-115); Osmolality Calculated 296 mOsm/kg (285-295); Potassium 4.0 mmol/L (3.5-5.1); Sodium 144 mmol/L (136-145); Total Protein 7.1 g/dL (6.6-8.7)
== END 2025-07-14 08:34 | disposition home or self-care (01) ==
PROVIDERS: Emergency Provider Family Medicine
DX: K59.00 Constipation, unspecified (principal)
CPT/HCPCS: 36415; 74022; 80053; 81001; 85025; 99284